=== PATIENT | female | born 1945 | race Caucasian/White ===

== ENCOUNTER → 2019-04-18 14:21 | Outpatient (BNVA) | payer MEDICARE, OTHER, SELFPAY | PROVIDERS: Family Provider Nurse Practitioner Family; PCP Nurse Practitioner Family; Visit Provider Nurse Practitioner Family | DX: K52.9 Noninfective gastroenteritis and colitis, unspecified (principal); R11.2 Nausea with vomiting, unspecified; J44.1 Chronic obstructive pulmonary disease with (acute) exacerbation | CPT/HCPCS: 85025; 87804 ==

== ENCOUNTER → 2019-06-23 13:18 | Outpatient (BNVA) | payer MEDICARE, OTHER, SELFPAY | PROVIDERS: PCP Family Medicine; Visit Provider Family Medicine | DX: R53.83 Other fatigue (principal); E55.9 Vitamin D deficiency, unspecified | CPT/HCPCS: 80053; 82306; 82607; 82746; 83540; 84443; 85025; 86618; 86666; 86757 ==

== ENCOUNTER → 2019-07-11 14:44 | Outpatient (BNVA) | payer MEDICARE, OTHER, SELFPAY | PROVIDERS: PCP Family Medicine; Visit Provider Nurse Practitioner Family | DX: L03.115 Cellulitis of right lower limb (principal) | CPT/HCPCS: 84450; 87070; 87077; 87186 ==

== ENCOUNTER → 2019-07-26 15:46 | Outpatient (BNVA) | payer MEDICARE, OTHER, SELFPAY | PROVIDERS: PCP Family Medicine; Visit Provider Nurse Practitioner Family | DX: I50.9 Heart failure, unspecified (principal); R06.02 Shortness of breath; J90 Pleural effusion, not elsewhere classified; R53.83 Other fatigue; J44.1 Chronic obstructive pulmonary disease with (acute) exacerbation | CPT/HCPCS: 71046; 80053; 83880; 85025 ==

== ENCOUNTER 2019-07-28 10:47 | Emergency (ER) | payer MEDICARE, OTHER, SELFPAY ==
[2019-07-28] VITALS (7 sets, daily range): BP systolic 148–177; BP diastolic 74–150; PULSE 83–106; RESP 16–22; TEMP 36.6; O2SAT 97–100; BMI 39.4
--- NOTE | 2019-07-28 10:50 | ED_ITS ---
HPI - SOB/Dyspnea General: Chief Complaint: Shortness of Breath/Dyspnea Stated Complaint: sob Time Seen by Provider: 07/28/19 10:50 History of Present Illness: HPI Narrative: 74 yo male comes in complaining of shortness of breath and some chest tightness for last 2 days she took extra doses of Lasix the last couple of days with minimal change in her symptoms other than some decrease in swelling in her legs. Cough is been nonproductive and she is not had a fever at all. She has a known history of just of heart failure and atrial fibrillation and is on blood thinners. No radiation of the pain no association with exertion she does have some orthopnea that is been persistent. She denies fever sweats chills nausea vomiting diarrhea no hematochezia melena hematemesis coffee-ground emesis. Associated symptoms: Deny abdominal pain, chest congestion, chest pain, fever(s), nausea, orthopnea or vomiting Review of Systems Const: Denies: fever, chills, body aches, change in appetite, fatigue or malaise ENMT: Denies: throat pain, ear pain, nasal discharge or nasal congestion Card: Denies: chest pain, edema, shortness of breath on exertion or shortness of breath when lying down Resp: Denies: shortness of breath, productive cough, non-productive cough or chest congestion GI: Denies: abdominal pain, nausea, vomiting, vomiting blood, coffee grounds in vomit, diarrhea, constipation, bloating, blood in stool or black tarry stool : Denies: flank pain, difficulty urinating, painful urination, urinary frequency or urinary urgency Skin/Breast: Denies: rash or itching PFSH ED PFSH: Social History Smoking and tobacco status: never smoked Alcohol intake: never Caregiver/support person: Yes Lives independently: Yes Household members: spouse and children Housing: House Marital status: Current occupational status: retired Previous occupational history: nurse History of recent travel: No Current gender identity: Female Physical Exam Const: COMMON NORMALS: no apparent distress GENERAL APPEARANCE: cooperative and comfortable ORIENTATION/CONSCIOUSNESS: Yes awake, Yes oriented to person, Yes oriented to place and Yes oriented to time HENMT: COMMON NORMALS: normocephalic, head/scalp atraumatic, hearing grossly normal bilaterally, external ears normal, EAC's normal, TM's normal bilaterally, nasal mucous membranes and turbinates normal, moist oral mucous membranes and oropharynx normal HEAD & SCALP: normocephalic and atraumatic NOSE: nasal mucous membranes and turbinates normal EXTERNAL EAR: Yes external ears normal EXTERNAL AUDITORY CANAL: EAC's normal TYMPANIC MEMBRANE: TM's normal bilaterally Eye: COMMON NORMALS: PERRL, EOMs intact bilaterally, conjunctivae normal and n o scleral icterus CONJUNCTIVA: Yes conjunctivae normal PUPIL: Yes PERRL Neck/C-Spine: COMMON NORMALS: full ROM, no lymphadenopathy, supple and no JVD Lymph: LYMPHATIC: no lymphadenopathy noted and no lymphedema noted Resp: COMMON NORMALS: normal respiratory effort, no retractions, no use of accessory muscles and clear to auscultation bilaterally AUSCULTATION: clear to auscultation bilaterally Cardio: COMMON NORMALS: no JVD, regular rate, regular rhythm and no murmurs RATE: regular rate RHYTHM: regular rhythm GI: COMMON NORMALS: soft to palpation and no hepatosplenomegaly AUSCULTATION: Yes normoactive bowel sounds PALPATION: Yes soft, No tender, No guarding and Yes no hepatosplenomegaly Extremity: COMMON NORMALS: normal to inspection, normal capillary refill, no clubbing, cyanosis or edema and no calf tenderness GENERAL: Yes edema (+1 Lower legs) Neuro: SENSORIUM/ORIENTATION: Yes oriented to person, Yes oriented to place and Yes oriented to time Skin: COMMON NORMALS: no rashes or lesions noted GENERAL SKIN EXAM: no rashes or lesions noted Course Vital Signs: Vital signs: Vital Signs Temperature 97.9 F 07/28/19 10:48 Pulse Rate 84 07/28/19 15:00 Respiratory Rate 16 07/28/19 15:00 Blood Pressure 177/150 07/28/19 15:00 Pulse Oximetry 99 07/28/19 15:00 MDM - SOB/Dyspnea MDM Narrative: Medical decision making narrative: Initially presented was hyperventilating. That has improved and she is feeling better. Patient has a mild increase in creatinine which is most likely due to her recent increase in diuretics that she is taking at home it has become effective she has evidence of chronic venous stasis edema but there is some skin laxity it appears it is less than her usual although there is still is some present. Her chest x-ray shows improvement of her congestive heart failure. Last echo I could find was from 2018 suspect she probably needs another 1 that time her EF was 60%. She is not having any chest pain at this point. There is no evidence of pneumonia. She do es have some chronic venous stasis edema discussed with her and will ever get her swelling completely gone. She does report having some orthopnea but she is able to manage it by sleeping with the head of the bed elevated or in a chair. There is no sign of pneumonia she is finishing a course of levofloxacin which I think she should complete. Her oxygen saturations are good. I do not recommend increasing her diuretics I think that will further exacerbate her kidneys and she has improved chest x-ray at this time. Patient was very upset she had expected that we will be able to do something that would make her feel completely better. Long discussion with her that most of these are chronic medical problems and there is nothing that I can admit her for anything we would do as an inpatient that would definitively resolve these issues. Encourage her to follow-up with cardiology for further management of her diuretics on a long- term basis. Lab Data: Labs: Lab Results 07/28/19 07/28/19 07/28/19 Range/Units 10:47 10:56 10:56 WBC 8.2 (4.0-10.0) 10^3/ uL RBC 4.09 L (4.1-5.3) 10^6/u L Hgb 12.4 (11.5-15.3) g/dL Hct 39.7 (37.0-47.0) % MCV 97.1 (81-99) fL MCH 30.3 (28.0-34.0) pg MCHC 31.2 (30.0-36.0) g/dL RDW 16.0 H (12.1-15.1) % Plt Count 194 (130-400) 10^3/c mm MPV 9.8 (7.4-10.4) fL Neut % (Auto) 59.9 % Lymph % (Auto) 24.6 % [place] % (Auto) 12.7 % Eos % (Auto) 1.5 % Baso % (Auto) 0.9 % Neut # (Auto) 4.9 (1.8-7.7) 10^3/u L Lymph # (Auto) 2.0 (0.8-4.8) 10^3/u L [place] # (Auto) 1.0 H (0.2-0.9) 10^3/u L Eos # (Auto) 0.1 (0.0-0.8) 10^3/u L Baso # (Auto) 0.1 (0.0-0.1) 10^3/u L Nucleated RBC % (a uto) 0 % Nucleated RBCs # 0.0 /100WBC Specimen Type Arterial Sample Site Radial, right ABG pH 7.48 H (7.35-7.45) ABG pCO2 30.1 L (35-45) mmHg ABG pO2 115.0 H (80.0-100.0) mmH g ABG HCO3 22.1 (22-26) mmol/L ABG O2 Saturation 97.7 ABG Base Excess -0.6 (-2.0-2.0) mmol/ L Daniel Test Pos Hematocrit 39.8 (37-47) % Hgb O2 Saturation 96.0 (95-100) % Carboxyhemoglobin 0.0 L (0.4-20.1) %THgb Methemoglobin 1.7 H (0.4-1.5) % Total Hemoglobin 13.0 (12-16) g/dL Sodium 143.0 138 (131-143) mmol/L Potassium 4.0 3.7 (3.5-5.0) mmol/L Glucose 135.0 H 124 H (70-115) mg/dL Ionized Calcium 1.1 (1.1-1.4) mmol/L O2 Delivery Device None FiO2 21.0 % Finance Professional ID ed Chloride 98 (98-107) mmol/L Carbon Dioxide 22 (22-29) mmol/L Anion Gap 21.7 H (5-19) BUN 23 (8-23) mg/dL Creatinine 1.7 H (0.5-0.9) mg/dL Calculated Osmolal ity 284 L (285-295) mOsm/k g Calcium 9.8 (8.5-10.5) mg/dL Total Bilirubin 0.3 (0.15-1.2) mg/dL AST 16 (0-32) U/L ALT 18 (0-33) U/L Alkaline Phosphata se 153 H (35-105) IU/L Troponin T Baselin e (0-10) ng/mL Troponin T 120 Min [place] (0-10) ng/mL Delta Troponin T (0-10) ABS# Total Protein 7.6 (6.6-8.7) g/dL Albumin 4.5 (3.5-5.2) g/dL Globulin 3.1 (1.3-4.6) g/dL 07/28/19 07/28/19 Range/Units 10:56 13:15 WBC (4.0-10.0) 10^3/ uL RBC (4.1-5.3) 10^6/u L Hgb (11.5-15.3) g/dL Hct (37.0-47.0) % MCV (81-99) fL MCH (28.0-34.0) pg MCHC (30.0-36.0) g/dL RDW (12.1-15.1) % Plt Count (130-400) 10^3/c mm MPV (7.4-10.4) fL Neut % (Auto) % Lymph % (Auto) % [place] % (Auto) % Eos % (Auto) % Baso % (Auto) % Neut # (Auto) (1.8-7.7) 10^3/u L Lymph # (Auto) (0.8-4.8) 10^3/u L [place] # (Auto) (0.2-0.9) 10^3/u L Eos # (Auto) (0.0-0.8) 10^3/u L Baso # (Auto) (0.0-0.1) 10^3/u L Nucleated RBC % (a uto) % Nucleated RBCs # /100WBC Specimen Type Sample Site ABG pH (7.35-7.45) ABG pCO2 (35-45) mmHg ABG pO2 (80.0-100.0) mmH g ABG HCO3 (22-26) mmol/L ABG O2 Saturation ABG Base Excess (-2.0-2.0) mmol/ L Daniel Test Hematocrit (37-47) % Hgb O2 Saturation (95-100) % Carboxyhemoglobin (0.4-20.1) %THgb Methemoglobin (0.4-1.5) % Total Hemoglobin (12-16) g/dL Sodium (131-143) mmol/L Potassium (3.5-5.0) mmol/L Glucose (70-115) mg/dL Ionized Calcium (1.1-1.4) mmol/L O2 Delivery Device FiO2 % Finance Professional ID Chloride (98-107) mmol/L Carbon Dioxide (22-29) mmol/L Anion Gap (5-19) BUN (8-23) mg/dL Creatinine (0.5-0.9) mg/dL Calculated Osmolal ity (285-295) mOsm/k g Calcium (8.5-10.5) mg/dL Total Bilirubin (0.15-1.2) mg/dL AST (0-32) U/L ALT (0-33) U/L Alkaline Phosphata se (35-105) IU/L Troponin T Baselin e 33 H (0-10) ng/mL Troponin T 120 Min [place] 30.04 H (0-10) ng/mL Delta Troponin T -2.96 L (0-10) ABS# Total Protein (6.6-8.7) g/dL Albumin (3.5-5.2) g/dL Globulin (1.3-4.6) g/dL Discharge Plan Discharge Patient Disposition: Home, Self-Care Clinical Impression: Hyperventilation, Chronic venous insufficiency, Hx of congestive heart failure Condition: Stable Prescriptions: No Action [place] 0.01 % drops 1 drop ophthalmic (eye) DAILY RF: 0 triamcinolone acetonide 0.5 % cream 1 applic TOPICAL BID RF: 0 levofloxacin [Levaquin] 750 mg tablet 750 mg PO DAILY 5 Days Qty: 5 RF: 0 prednisone 20 mg tablet 20 mg PO BID 5 Days Qty: 10 RF: 0 furosemide 80 mg tablet 80 mg PO QAM RF: 0 potassium chloride 20 mEq tablet,ER particles/crystals 40 meq PO BID RF: 0 trazodone 150 mg tablet 150 mg PO .HS RF: 0 metoprolol tartrate 75 mg tablet 75 mg PO BID RF: 0 pantoprazole 40 mg tablet,delayed release (DR/EC) 40 mg PO BID RF: 0 ropinirole [Requip XL] 4 mg tablet extended release 24 hr 4 mg PO .HS RF: 0 duloxetine [Cymbalta] 60 mg capsule,delayed release(DR/EC) 60 mg PO BID RF: 0 atorvastatin 20 mg tablet 20 mg PO DAILY RF: 0 Eliquis 5 mg tablet 5 mg PO BID RF: 0 losartan 25 mg tablet 25 mg PO DAILY RF: 0 mupirocin 2 % ointment 1 applic TOPICAL BID Qty: 30 RF: 0 levothyroxine 50 mcg tablet 50 mcg PO DAILY Qty: 90 RF: 0 Discharge Orders: Discharge Order (Routine); Ordered 07/28/19 Ordered By: Krzysztof Phan Referrals: Aminata Brown MD [Primary Care Provider] - Discharge Diet: Low Salt Discharge Activity: Increase activity as tolerated Activity Restrictions/Additional Instructions: Follow-up with your primary care doctor for recheck on your potassium. For now keep taking the same same dose of furosemide 80 mg once daily. Discharge Date/Time: 07/28/19 14:52 Coding Level of Care Code ED Personnel Quality Assurance Auditor for Christine Yu
--- NOTE | 2019-07-28 10:51 | ECG_ITS ---
Measurements Intervals [place] Rate: 93 P: 56 VT: 179 QRS: 21 QRSD: 81 T: 37 QT: 346 QTc: 432 SINUS RHYTHM WITH OCCASIONAL VENTRICULAR PREMATURE COMPLEXES MINIMAL ST DEPRESSION [0.025+ mV ST DEPRESSION] Compared to ECG 02/09/2017 09:49:48 Ventricular premature complex(es) now present ST (T wave) deviation now present Electronically Signed On 07-28-2019 11:05:43 CDT by Radha Desouza M.D. [email or web address]
--- NOTE | 2019-07-28 10:51 | XR_ITS ---
WS: [id number] PORTABLE CHEST HISTORY: dyspnea/cough COMPARISON: 07/26/2019 Significant improvement in aeration bilaterally. Resolution of the previous the described CHF. No eff usion. No pneumonia. No pleural effusion or pneumothorax. Cardiac size: Normal. Mediastinum/Aorta: Mild atherosclerosis aorta. Bilateral humeral head prostheses. XR/XR chest 1V portable [id number] IMPRESSION: Interval resolution of recently described CHF. No pneumonia.
[2019-07-28 10:58] LABS: ABG PCO2 30.1 mmHg (35-45); ABG PH Result 7.48 (7.35-7.45); Arterial Blood Gas Hematocrit 39.8 % (37-47); Base Excess ABG -0.6 mmol/L (-2.0-2.0); Blood Gas Allen Test Pos; Blood Gas Sample Site Radial, right; Blood Gas Sample Type Arterial; HCO3 ABG 22.1 mmol/L (22-26); Ionized Calcium Level - ABG 1.1 mmol/L (1.1-1.4); Methemoglobin 1.7 % (0.4-1.5); Oxygen Saturation ABG 97.7
[2019-07-28 11:11] LABS: Basophils # 0.1 10^3/uL (0.0-0.1); Basophils % 0.9 %; Eosinophils # 0.1 10^3/uL (0.0-0.8); Eosinophils % 1.5 %; Hematocrit 39.7 % (37.0-47.0); Hemoglobin 12.4 g/dL (11.5-15.3); Lymphocytes % 24.6 %; Mean Corpuscular HGB Conc 31.2 g/dL (30.0-36.0); Mean Corpuscular Hemoglobin 30.3 pg (28.0-34.0); Mean Corpuscular Volume 97.1 fL (81-99); Mean Platelet Volume 9.8 fL (7.4-10.4); Monocytes % 12.7 %; Neutrophils # 4.9 10^3/uL (1.8-7.7); Neutrophils % 59.9 %; Nucleated Red Blood Cells % 0 %; Platelet Count 194 10^3/cmm (130-400); Red Blood Count 4.09 10^6/uL (4.1-5.3); White Blood Count 8.2 10^3/uL (4.0-10.0)
[2019-07-28 11:28] LABS: Alanine Aminotransferase 18 U/L (0-33); Albumin Level 4.5 g/dL (3.5-5.2); Alkaline Phosphatase 153 IU/L (35-105); Anion Gap 21.7 (5-19); Aspartate Amino Transferase 16 U/L (0-32); Blood Urea Nitrogen 23 mg/dL (8-23); Calcium 9.8 mg/dL (8.5-10.5); Carbon Dioxide 22 mmol/L (22-29); Chloride 98 mmol/L (98-107); Creatinine Clr Calc Pharmacy 30.5252; Globulin 3.1 g/dL (1.3-4.6); Glucose 124 mg/dL (65-115); Osmolality Calculated 284 mOsm/kg (285-295); Potassium 3.7 mmol/L (3.5-5.1); Sodium 138 mmol/L (136-145); Total Bilirubin 0.3 mg/dL (0.15-1.2); Total Protein 7.6 g/dL (6.6-8.7)
[2019-07-28 11:30] LABS: Troponin(5th) Baseline 33 ng/mL (0-10)
[2019-07-28 13:40] LABS: Troponin 5 2HR 30.04 ng/mL (0-10); Troponin 5 2HR Delta -2.96 ABS# (0-10)
--- NOTE | 2019-07-28 16:51 | ECG_ITS ---
Measurements Intervals [place] Rate: 82 P: 62 AK: 183 QRS: 6 QRSD: 81 T: 26 QT: 375 QTc: 439 SINUS RHYTHM WITH OCCASIONAL VENTRICULAR PREMATURE COMPLEXES Compared to ECG 07/28/2019 11:05:23 ST (T wave) deviation no longer present Electronically Signed On 07-28-2019 21:13:59 CDT by Radha Desouza M.D. [email or web address]
== END 2019-07-28 14:52 | disposition home or self-care (01) ==
PROVIDERS: Emergency Provider Family Medicine; PCP Family Medicine
DX: R06.4 Hyperventilation (principal); I73.9 Peripheral vascular disease, unspecified; I50.9 Heart failure, unspecified
CPT/HCPCS: 12345; 36415; 36600; 71045; 80051; 80053; 82810; 83986; 84484; 85025; 93005; 99283; 99284

== ENCOUNTER → 2019-08-15 12:09 | Outpatient (BNVA) | payer MEDICARE, OTHER, SELFPAY | PROVIDERS: PCP Family Medicine; Visit Provider Nurse Practitioner Family | DX: I50.9 Heart failure, unspecified (principal) | CPT/HCPCS: 80048 ==

== ENCOUNTER 2019-08-18 09:31 | Outpatient (CLI) | payer MEDICARE, OTHER, SELFPAY ==
--- NOTE | 2019-08-18 09:30 | USCV_ITS ---
Anita Duggan Age: 74 Gender: F : 1945 Exam Date: 08/18/2019 11:47 Ordering Phys: Maribel Norris Technologist: Brittney Gloria Exam Location: [facility] – [place] Indication: HEART FAILURE BP: / HR: 83 Rhythm: Sinus Technical Quality: Adequate MEASUREMENTS (Male / Female) Normal Values 2D ECHO LV Diastolic Diameter PLAX 3.9 cm 4.2 - 5.9 / 3.9 - 5.3 cm LV Systolic Diameter PLAX 3.0 cm IVS Diastolic Thickness 1.4 cm 0.6 - 1.0 / 0.6 - 0.9 cm IVS Systolic Thickness 1.3 cm LVPW Diastolic Thickness 1.3 cm 0.6 - 1.0 / 0.6 - 0.9 cm LVPW Systolic Thickness 1.5 cm LVOT Diameter 2.0 cm LV Ejection Fraction 2D Teich 49.0 % LV Ejection Fraction MOD 2C 41.9 % LV Ejection Fraction 2C AL 44.5 % LA Diameter 3.8 cm LA Width 3.0 cm LA Height 3.8 cm RA Width 2.8 cm RA Height 3.6 cm Aorta at Sinotubular Diameter 3.3 cm M-MODE LV Diastolic Diameter MM 5.2 cm 4.2 - 5.9 / 3.9 - 5.3 cm LV Systolic Diameter MM 3.9 cm LV Ejection Fraction MM Teich 49.8 % IVS Diastolic Thickness MM 0.9 cm 0.6 - 1.0 / 0.6 - 0.9 cm IVS Systolic Thickness MM 1.3 cm LVPW Diastolic Thickness MM 1.3 cm 0.6 - 1.0 / 0.6 - 0.9 cm LVPW Systolic Thickness MM 1.8 cm RV Diastolic Diameter MM 1.1 cm Aortic Annulus Diameter 3.3 cm LA Ao Ratio MM 1.1 MV E Point Septal Separation 0.4 cm DOPPLER AV Peak Velocity 181.0 cm/s LVOT Peak Velocity 87.0 cm/s AV Area Cont Eq vti 2.3 cm squared AV Area Cont Eq pk 1.6 cm squared MV Area PHT 5.8 cm squared Mitral E to A Ratio 0.9 MV E' Velocity 8.0 cm/s Mitral E to MV E' Ratio 11.3 Mitral E to LV E' Lateral Ratio 12.8 Mitral E to LV E' Septal Ratio 10.1 TR Peak Velocity 185.7 cm/s TR Peak Gradient 13.8 mmHg TR Mean Velocity 124.6 cm/s TR Mean Gradient 7.1 mmHg TR Velocity Time Integral 48.8 cm TV Peak E Velocity 70.0 cm/s Right Atrial Pressure 3.0 mmHg Pulmonary Artery Systolic Pressu 16.8 mmHg PV Peak Velocity 96.0 cm/s RV Acceleration Time 0.2 s RV Ejection Time 0.4 s RV AcT/ET 0.5 FINDINGS Left Ventricle Normal left ventricular size and systolic function with no diagnostic regional wall motion abnormalities. Left ventricular ejection fraction is estimated at 60 %. Normal diastolic function. Right Ventricle Normal right ventricular size and systolic function, RVSP 21 mmHg. Right Atrium Normal right atrial size. Right atrial pressure estimated at 3 mmHg. Left Atrium Mildly increased left atrial size. Mitral Valve Mildly thickened mitral valve. No mitral valve stenosis. Mild mitral valve regurgitation. Aortic Valve Aortic valve not well visualized. No aortic valve stenosis. No aortic valve regurgitation. Tricuspid Valve Structurally normal tricuspid valve. Trace tricuspid valve regurgitation. Pulmonic Valve Pulmonic valve not well visualized. Pericardium No pericardial effusion. Aorta Aorta not well visualized. Normal-sized aortic root. CONCLUSIONS 1. Normal left ventricular size and systolic function with no diagnostic regional wall motion abnormalities. Left ventricular ejection fraction is estimated at 60 %. Normal diastolic function. 2. Normal right ventricular size and systolic function, RVSP 21 mmHg. 3. Mildly increased left atrial size. 4. Mild mitral valve regurgitation. 5. When compared to previous echocardiogram dated 08/28/2017, there has been no significant change. Radha Desouza MD (Electronically Signed) Final Date: 18 Aug 2019 14:06 S
--- NOTE | 2019-08-18 09:30 | USCV_ITS ---
Anita Duggan Age: 74 Gender: F : 1945 Exam Date: 08/18/2019 11:25 Ordering Phys: Maribel Norris Technologist: Brittney Gloria Exam Location: [facility] [place] Indication: LEFT CAROTID STENOSIS Risk Factors: Previous Vascular Surgery: Right Brachial BP: / Left Brachial BP: / Right Left Velocity (cm/s) Spectral Plaque Velocity (cm/s) Spectral Plaque Syst/Diast Broadening Syst/Diast Broadening 102.50/18.70 Prox CCA 61.50 / 15.40 54.40/ 13.20 Mid CCA 59.80 / 12.80 53.60/ 12.40 Distal CCA 55.50 / 16.20 40.10/ 11.70 Prox ICA 71.00 / 21.30 51.30/ 15.50 Mid ICA 81.60 / 24.10 59.30/ 11.50 Distal ICA 80.90 / 17.00 90.40 ECA 78.60 1.09 ICA/CCA 1.36 Antegrade Vertebral Antegrade 44.20/ 10.10 cm/s 38.30/ 13.50 cm/s Tri Subclavian Tri 137.5 189.8 0 0 CONCLUSIONS Right ICA stenosis <50%. Left ICA stenosis <50%. Mild atheromatous plaque left carotid bulb/ICA. Normal antegrade Doppler flow noted in the right vertebral artery. Normal antegrade Doppler flow noted in the left vertebral artery. Jayant Lang MD (Electronically Signed) Final Date: 18 Aug 2019 12:51 S
== END 2019-08-18 09:32 | disposition home or self-care (01) ==
LOC: RAD 09:35
PROVIDERS: PCP Family Medicine; Visit Provider Nurse Practitioner Family
DX: I50.9 Heart failure, unspecified; I34.0 Nonrheumatic mitral (valve) insufficiency; I65.23 Occlusion and stenosis of bilateral carotid arteries
CPT/HCPCS: 93306; 93880

== ENCOUNTER → 2019-09-09 14:52 | Outpatient (BNVA) | payer MEDICARE, OTHER, SELFPAY | PROVIDERS: PCP Family Medicine; Visit Provider Nurse Practitioner Family | DX: R30.0 Dysuria (principal); R32 Unspecified urinary incontinence; J44.9 Chronic obstructive pulmonary disease, unspecified | CPT/HCPCS: 81000 ==

== ENCOUNTER → 2019-09-12 10:51 | Outpatient (BNVA) | payer MEDICARE, OTHER, SELFPAY | PROVIDERS: PCP Family Medicine; Visit Provider Family Medicine | DX: J44.9 Chronic obstructive pulmonary disease, unspecified (principal) | CPT/HCPCS: 82103 ==

== ENCOUNTER → 2019-09-16 13:21 | Outpatient (BNVA) | payer MEDICARE, OTHER, SELFPAY | PROVIDERS: PCP Family Medicine; Visit Provider Nurse Practitioner Family | DX: R53.83 Other fatigue (principal); R19.7 Diarrhea, unspecified; E78.5 Hyperlipidemia, unspecified | CPT/HCPCS: 80053; 85025 ==

== ENCOUNTER → 2019-10-19 16:52 | Outpatient (BNVA) | payer MEDICARE, OTHER, SELFPAY | PROVIDERS: PCP Family Medicine; Visit Provider Nurse Practitioner Family | DX: D64.9 Anemia, unspecified (principal); I50.9 Heart failure, unspecified | CPT/HCPCS: 80053; 85025 ==

== ENCOUNTER → 2019-10-31 15:05 | Outpatient (BNVA) | payer MEDICARE, OTHER, SELFPAY | PROVIDERS: PCP Family Medicine; Visit Provider Internal Medicine Cardiovascular Disease | DX: R06.02 Shortness of breath (principal) | CPT/HCPCS: 80048; 83880 ==

== ENCOUNTER → 2020-02-01 15:52 | Outpatient (BNVA) | payer MEDICARE, OTHER, SELFPAY | PROVIDERS: PCP Family Medicine; Visit Provider Nurse Practitioner Family | DX: R19.7 Diarrhea, unspecified (principal) | CPT/HCPCS: 82270; 87205; 87493; 87506 ==

== ENCOUNTER → 2020-02-29 16:05 | Outpatient (BNVA) | payer MEDICARE, OTHER, SELFPAY | PROVIDERS: PCP Family Medicine; Visit Provider Family Medicine | DX: Z20.828 Contact with and (suspected) exposure to other viral communicable diseases (principal) | CPT/HCPCS: 87635 ==